=== PATIENT | female | born 1970 | race Caucasian/White ===

== ENCOUNTER 2024-07-31 17:10 | Emergency (ER) | payer MEDICAID ==
[~2024-07-31] VITALS: Ht 152.4 cm; Wt 59.0 kg
[2024-07-31 17:49] VITALS: TEMP 98.8
[2024-07-31 19:06] LABS: BASOPHILS % 0.3 % (0.0-2.0); EOSINOPHILS % 1.5 % (0.0-5.0); HEMATOCRIT. 23.3 % (36.0-48.0); HEMOGLOBIN. 7.6 g/dL (12.0-16.0); LYMPHOCYTES % 45.3 % (20.0-50.0); MEAN CORPUSCULAR HEMOGLOBIN 28.2 pg (28.0-32.0); MEAN CORPUSCULAR HGB CONC 32.8 g/dL (31.0-37.0); MEAN CORPUSCULAR VOLUME 85.8 fL (81.0-99.0); MEAN PLATELET VOLUME 6.5 fl (7.4-10.4); MONOCYTES % 10.2 % (2.0-8.0); NEUTROPHILS % 42.7 % (40.0-76.0); PLATELET 450 x1000/uL (130-400); RED BLOOD CELL COUNT 2.71 mill/uL (4.2-5.4); RED CELL DISTRIBUTION WIDTH 15.9 % (11.6-14.6); WHITE BLOOD COUNT 3.6 x1000/uL (4.5-11.0)
[2024-07-31 19:11] LABS: CHLORIDE 110 mEq/L (98-107); POTASSIUM 3.5 mEq/L (3.5-5.1); SODIUM 142 mEq/L (136-145)
[2024-07-31 19:12] LABS: CARBON DIOXIDE 25 mEq/L (21-32)
[2024-07-31 19:13] LABS: CALCIUM 8.6 mg/dL (8.7-10.4)
[2024-07-31 19:15] LABS: HCG SCREEN NEGATIVE
[2024-07-31 19:17] LABS: CREATININE 0.6 mg/dL (0.6-1.0)
[2024-07-31 19:18] LABS: GLUCOSE 93 mg/dL (70-105); UREA NITROGEN BLOOD 14 mg/dL (9-23)
[2024-08-01 00:06] VITALS: BP 123/71; PULSE 82; RESP 14; O2SAT 99
== END 2024-08-01 00:07 | disposition home or self-care (01) ==
LOC: ER 17:10
DX: K62.5 Hemorrhage of anus and rectum (principal)
CPT/HCPCS: 36415; 74177; 80048; 84703; 85025; 86850; 86900; 93005; 99284